=== PATIENT | female | born 1965 | race Caucasian/White ===

== ENCOUNTER 2021-06-03 21:21 | Emergency (ER) | payer BC ==
[~2021-06-03 21:21] MED LIST: FLEXERIL 10 MG10 MG PO; NAPROSYN500 MG PO
[2021-06-03 22:33] LABS: HEMOGLOBIN 13.4 gm/dl (12.3-15.3); RED BLOOD COUNT 4.28 M/UL (4.00-5.10); WHITE BLOOD COUNT 7.8 K/UL (4.5-11.0)
[2021-06-04] MEDS ORDERED: PERCOCET 5/325 T1 EA PO (00:08)
== END 2021-06-04 00:22 | disposition home or self-care (01) ==
LOC: ER1 21:21
PROVIDERS: Emergency Medicine
DX: R10.2 Pelvic and perineal pain (principal)
CPT/HCPCS: 71045; 80053; 81001; 82550; 82553; 83605; 83880; 84484; 85025; 85610; 85730; 87086; 93005; 96374; 96375; 99284; J2270; J2405; Q9967

== ENCOUNTER 2021-11-29 23:47 | Emergency (ER) | payer OTHER ==
[~2021-11-29 23:47] MED LIST changes: +PERCOCET 5/325 T1 EA PO
== END 2021-11-30 04:15 | disposition home or self-care (01) ==
LOC: ER1 23:47
DX: R07.0 Pain in throat (principal)
CPT/HCPCS: 99282